=== PATIENT | male | born 1970 | race Two or more races ===

== ENCOUNTER 2017-02-08 20:10 | Emergency (ER) | payer OTHER ==
[~2017-02-08] VITALS: Ht 182.9 cm; Wt 109.5 kg
[2017-02-08 20:31] VITALS: BP 143/99
[2017-02-08] MEDS ORDERED: TIZA4TAB8 PO (21:11)
--- NOTE | 2017-02-08 21:11 | PHYS DOC ---
Past History Past Medical History: No Pertinent History, High Cholesterol Past Surgical History: Other Alcohol Use: None Drug Use: None Adult General Chief Complaint Chief Complaint: LOWER BACK PAIN OR INJURY HPI HPI Patient is a 46 year old male who presents with back pain. He states it started 5-7 days ago and he's had this pain before his describes it as more of her chronic pain but it has intensified. He states this is worse it has ever gotten. Eyes any numbness or tingling in his lower chimneys or loss of bowel or bladder function. He was seen at another ER and had x-rays of his back and was given tramadol and Flexeril. He states is not working. He still has spasms of his back. He describes it as a spasm that she's down both of his right and left leg. He states it can come on any time. He states he hasn't appointment with an orthopedic surgeon but does not for 8 more days. Review of Systems Review of Systems Constitutional: Denies fever or chills [] Eyes: Denies change in visual acuity, redness, or eye pain [] HENT: Denies nasal congestion or sore throat [] Respiratory: Denies cough or shortness of breath [] Cardiovascular: No additional information not addressed in HPI [] GI: Denies abdominal pain, nausea, vomiting, bloody stools or diarrhea [] : Denies dysuria or hematuria [] Musculoskeletal: Positive for back pain, Denies joint pain [] Integument: Denies rash or skin lesions [] Neurologic: Denies headache, focal weakness or sensory changes [] Endocrine: Denies polyuria or polydipsia [] Physical Exam Physical Exam Constitutional: Well developed, well nourished, no acute distress, non-toxic appearance. [] HENT: Normocephalic, atraumatic, bilateral external ears normal, oropharynx moist, no oral exudates, nose normal. [] Eyes: PERRLA, EOMI, conjunctiva normal, no discharge. [] Neck: Normal range of motion, no tenderness, supple, no stridor. [] Cardiovascular:Heart rate regular rhythm, no murmur [] Lungs & Thorax: Bilateral breath sounds clear to auscultation [] Abdomen: Bowel sounds normal, soft, no tenderness, no masses, no pulsatile masses. [] Skin: Warm, dry, no erythema, no rash. [] Back: No tenderness midline, tender palpation bilateral paraspinal in the sacral area, no CVA tenderness. [] Extremities: No tenderness, no cyanosis, no clubbing, ROM intact, no edema. 5 out of 5 in lower extremities at the hips knees and ankles Neurologic: Alert and oriented X 3, normal motor function, normal sensory function, no focal deficits noted. [] Psychologic: Affect normal, judgement normal, mood normal. [] Current Patient Data Vital Signs Vital Signs Date Time Temp Pulse Resp B/P (MAP) Pulse Ox O2 Delivery O2 Flow Rate FiO2 02/08/17 20:31 98.3 96 20 96 Room Air EKG EKG [] Radiology/Procedures Radiology/Procedures [] Impressions: Muscle spasm Back pain Course & Med Decision Making Course & Med Decision Making Pertinent Labs and Imaging studies reviewed. (See chart for details) We spoke about adding ibuprofen 6 mg every 8 hours onto his tramadol. We also spoke about if this doesn't help he can try stopping cyclobenzaprine and starting Zanaflex. He is agreeable plan and being discharged in stable condition with his and 2 children with return precautions given. Dragon Disclaimer Dragon Disclaimer This chart was dictated in whole or in part using Voice Recognition software in a busy, high-work load, and often noisy Emergency Department environment. It may contain unintended and wholly unrecognized errors or omissions. Departure Departure: Impression: Primary Impression: Back pain Disposition: 01 HOME, SELF-CARE Condition: STABLE Referrals: PCP,UNKNOWN (PCP) Patient Instructions: Back Pain, Adult Additional Instructions: He can try taking 600 mg every 8 hours of Advil, please drink a few extra glasses of water while taking this high dose of medicine. He should not do this for more than 5-7 days in a row. If this doesn't help he can stop taking cyclobenzaprine start taking Zanaflex. The doses 4 mg every 8 hours as needed for muscle spasm. It can make you sleepy just like cyclobenzaprine did. If you have numbness in your legs, he lose bowel or bladder function, he develop high fevers, ear pains uncontrolled we have other concerns please return back to emergency department. Scripts Tizanidine Hcl (ZANAFLEX) 4 Mg Tablet 4 MG PO PRN Q8HRS Y for MUSCLE SPASMS, #30 TAB Prov: MAX GUERRA MD 02/08/17 Problem Qualifiers Primary Impression: Back pain Back pain location: low back pain Chronicity: acute Back pain laterality: bilateral Sciatica presence: without sciatica Qualified Codes: M54.5 - Low back pain MAX GUERRA MD Feb 08, 2017 21:11
[2017-02-08] MEDS ORDERED: IBUPROFEN 600 MG TABLET. PO ONE (21:30)
== END 2017-02-08 21:28 | disposition home or self-care (01) ==
LOC: ER 20:10
DX: M54.5 Low back pain (principal); E78.00 Pure hypercholesterolemia, unspecified
CPT/HCPCS: 99283

== ENCOUNTER 2017-09-20 04:31 | Emergency (ER) | payer OTHER ==
[~2017-09-20] VITALS: Ht 182.9 cm; Wt 109.3 kg
[~2017-09-20 04:31] MED LIST: TIZA4TAB8 PO
[2017-09-20 05:13] LABS: BASO # 0.2 x10^3/uL (0.0-0.2); BASO % 1 % (0-3); EOS # 0.3 x10^3/uL (0.0-0.7); EOS % 2 % (0-3); HEMATOCRIT 50.5 % (39.0-53.0); HEMOGLOBIN 17.3 g/dL (13.0-17.5); LYMPH # 3.6 x10^3/uL (1.0-4.8); LYMPH % 26 % (24-48); MEAN CORPUSCULAR HEMOGLOBIN 31 pg (25-35); MEAN CORPUSCULAR HGB CONC 34 g/dL (31-37); MEAN CORPUSCULAR VOLUME 89 fL (79-100); MONO % 8 % (0-9); NEUT # 8.9 x10^3uL (1.8-7.7); NEUT % 64 % (31-73); PLATELET COUNT 228 x10^3/uL (140-400); RED BLOOD COUNT 5.67 x10^6/uL (4.30-5.70); RED CELL DISTRIBUTION WIDTH 13.9 % (11.5-14.5)
--- NOTE | 2017-09-20 05:21 | PHYS DOC ---
Past History Past Medical History: No Pertinent History, High Cholesterol Past Surgical History: Other Alcohol Use: None Drug Use: None Adult General Chief Complaint Chief Complaint: ABDOMINAL PAIN HPI HPI 47-year-old male with a distant history of a single episode of colitis now presents the emergency department complaining of abdominal pain over the last day. Patient describes epigastric pain. He's never had pancreatitis and does not drink heavily. Patient denies a history of gastritis or peptic ulcer disease. No right upper quadrant or right lower quadrant tenderness. Patient denies chest pain or shortness of breath. No diaphoresis. Normal bowel and bladder habits Review of Systems Review of Systems Constitutional: Denies fever or chills [] Eyes: Denies change in visual acuity, redness, or eye pain [] HENT: Denies nasal congestion or sore throat [] Respiratory: Denies cough or shortness of breath [] Cardiovascular: No additional information not addressed in HPI [] GI: Denies abdominal pain, nausea, vomiting, bloody stools or diarrhea [] : Denies dysuria or hematuria [] Musculoskeletal: Denies back pain or joint pain [] Integument: Denies rash or skin lesions [] Neurologic: Denies headache, focal weakness or sensory changes [] Endocrine: Denies polyuria or polydipsia [] All other systems were reviewed and found to be within normal limits, except as documented in this note. Current Medications Current Medications Current Medications Medications (Trade) Dose Ordered Sig/Michelle Start Time Stop Time Status Last Admin Dose Admin Ketorolac Tromethamine (Toradol) 30 mg 1X ONCE 09/20/17 05:30 09/20/17 05:31 Ondansetron HCl (Zofran) 4 mg 1X ONCE 09/20/17 05:30 09/20/17 05:31 Sodium Chloride 1,000 ml @ 1,000 mls/hr 1X ONCE 09/20/17 05:00 09/20/17 05:59 UNV Allergies Allergies Allergies Coded Allergies Type Severity Reaction Last Updated Verified No Known Drug Allergies 02/08/17 No Physical Exam Physical Exam Constitutional: Well developed, well nourished, mildly uncomfortable appearing. HENT: Normocephalic, atraumatic, bilateral external ears normal, oropharynx moist, no oral exudates, nose normal. [] Eyes: PERRLA, EOMI, conjunctiva normal, no discharge. [] Neck: Normal range of motion, no tenderness, supple, no stridor. [] Cardiovascular:Heart rate regular rhythm, no murmur [] Lungs & Thorax: Bilateral breath sounds clear to auscultation [] Abdomen: Bowel sounds normal, soft, upper abdominal tenderness without guarding or rebound, negative Shen sign. Nontender McBurney's point. No masses, no pulsatile masses. [] Skin: Warm, dry, no erythema, no rash. [] Back: No tenderness, no CVA tenderness. [] Extremities: No tenderness, no cyanosis, no clubbing, ROM intact, no edema. [] Neurologic: Alert and oriented X 3, normal motor function, normal sensory function, no focal deficits noted. [] Psychologic: Affect normal, judgement normal, mood normal. [] EKG EKG EKG with normal sinus rhythm at 72 left axis deviation and left anterior hemiblock no STEMI interpreted by me[] Radiology/Procedures Radiology/Procedures [] Course & Med Decision Making Course & Med Decision Making Pertinent Labs and Imaging studies reviewed. (See chart for details) Patient with upper abdominal pain without apparent chronic etiology. Full workup pending including labs and CT. Analgesia administered. We will follow laboratory and radiographic results and correlate with clinical reevaluation for disposition. Care will be assumed by Dr. Jin, oncoming physician, at 6 AM to follow results, reevaluate, and disposition pt. [] Evaluation of patient in ER showed 47-year-old male patient with complaining of gradual onset of upper abdominal pain since 1800 yesterday with nausea. Patient stated the pain moving to lower abdomen since this morning. Patient had right lower quadrant tenderness and rebound tenderness and with leukocytosis of 14, 000. CT abdomen and pelvis showed acute appendicitis. Dr. Avendaño Informed at 0645 and accepted transfer to [facility]. Dr. hSaw on-call surgeon was consulted at 0651 and agreed with plan of care and starting Zosyn and plans to perform surgery today. Patient informed about plan of care. Dragon Disclaimer Dragon Disclaimer This electronic medical record was generated, in whole or in part, using a voice recognition dictation system. Departure Departure: Impression: Primary Impression: Acute appendicitis Additional Impression: Leukocytosis Disposition: XFER [facility] HOSP (At 0658) Admitting Physician: Jarocho, Ahmed Condition: IMPROVED Referrals: PCP,UNKNOWN (PCP) Problem Qualifiers SPARKLE MEREDITH MD September 20, 2017 05:21 DOMITILA JIN MD September 20, 2017 06:58
[2017-09-20 05:26] LABS: ALBUMIN 3.7 g/dL (3.4-5.0); ALBUMIN/GLOBULIN RATIO 0.9 (1.0-1.7); CALCIUM 8.8 mg/dL (8.5-10.1); GFR 80.1; POTASSIUM 3.9 mmol/L (3.5-5.1); TOTAL BILIRUBIN 0.4 mg/dL (0.2-1.0); TOTAL PROTEIN 7.6 g/dL (6.4-8.2)
[2017-09-20] MEDS ORDERED: ONDANSETRON PF 4 MG/2 ML VIAL. IV ONE (05:30)
[2017-09-20] MEDS ORDERED: IV NORMAL SALINE 1,000ML 1,000 ML IV ONE ×2 (05:30→07:15)
[2017-09-20] MEDS ORDERED: KETOROLAC 30 MG/ML VIAL. IV ONE (05:30)
[2017-09-20] MEDS ORDERED: CONTRAST GIVEN MC PRN (05:30)
[2017-09-20] MEDS ORDERED: IOHEXOL 300 MG/ML 75 ML VIAL. IV ONE (05:45)
[2017-09-20] MEDS ORDERED: ONDANSETRON ODT 4 MG TAB.RAPDIS PO ONE (05:45)
--- NOTE | 2017-09-20 06:34 | RAD ---
INDICATION: [id number] Omni 300 75cc: Abdomen pain, nausea, diarrhea x 1 day COMPARISON: None. TECHNIQUE: Axial CT images obtained through the abdomen and pelvis with contrast. One or more of the following individualized dose reduction techniques were utilized for this examination: 1. Automated exposure control; 2. Adjustment of the mA and/or kV according to patient size; 3. Use of iterative reconstruction technique. FINDINGS: Abdominal aorta is not grossly aneurysmal. There is some calcific atherosclerosis. Liver is low-attenuation. Gallbladder is largely contracted. No definite peripancreatic fluid collection. Spleen unremarkable. Couple low-density lesions of the bilateral kidneys measuring up to 16 mm on the right. No definite hydronephrosis. Urinary bladder is partially distended. Colonic diverticulosis. Blind-ending tubular structure right lower quadrant the abdomen measuring up to 14 mm with some adjacent inflammatory changes to the fat. This tapers more distally. No dilated loops of bowel to suggest obstruction. Sclerotic focus right acetabular region. IMPRESSION: 1. The appendix is dilated with adjacent edema. Could be secondary to acute appendicitis. Result discussed with ER at 6:25 AM on date of exam. 2. Liver is low-attenuation. Nonspecific but can be seen with fatty infiltration. 3. There couple low-density bilateral renal lesions that are not well characterized on this exam. Nonemergent CT, MRI or ultrasound could better evaluate to assess whether these are solid or cystic in nature. Electronically signed by: Braeden Nazario MD (09/20/2017 6:31 AM) [id number]
[2017-09-20 07:19] LABS: BILIRUBIN,URINE NEG (NEG); CLARITY,URINE HAZY; COLOR,URINE YELLOW; GLUCOSE,URINE NEG (NEG)
[2017-09-20 07:20] LABS: BACTERIA,URINE 0 /HPF (0-FEW); NITRITE,URINE NEG (NEG); RBC,URINE 0 /HPF (0-2); SQUAMOUS EPITHELIAL CELL,UR OCC /LPF; UROBILINOGEN,URINE 0.2 mg/dL (0.2 mg/dL); WBC,URINE 0 /HPF (0-4)
[2017-09-20] MEDS ORDERED: PIPERACILLIN/TAZOBACTAM 3.375 GM in IV NORMAL SALINE 50ML 50 ML IV ONE (07:30)
[2017-09-20] MEDS ORDERED: IV NORMAL SALINE 50ML 50 ML ONE ×2 (08:02→08:10)
[2017-09-20] MEDS ORDERED: PIPERACILLIN/TAZOBACTAM 3.375 GM VIAL IV ONE ×2 (08:02→08:10)
[2017-09-20 08:24] VITALS: BP 141/76
== END 2017-09-20 08:30 | disposition short-term general hospital (02) ==
LOC: ER 04:31
DX: K35.80 Unspecified acute appendicitis (principal); D72.829 Elevated white blood cell count, unspecified; E78.00 Pure hypercholesterolemia, unspecified
CPT/HCPCS: 36415; 74177; 80053; 81001; 83690; 85025; 96365; 96375; 99285; J1885; J2543; Q0162; Q9967; J7030